=== PATIENT | male | born 1955 | race Two or more races ===

== ENCOUNTER 2018-09-25 03:37 | Inpatient (IN) | payer MEDICARE, MEDICAID ==
[~2018-09-25] VITALS: Ht 167.6 cm; Wt 83.1 kg
[2018-09-25] VITALS (7 sets, daily range): BP systolic 142–198; BP diastolic 60–85
[2018-09-25] MEDS ORDERED: Aspirin Baby 81mg ORAL ONE (03:45)
--- NOTE | 2018-09-25 03:45 | NUR ---
ED Nurse Note: Patient was BIBA from home due to respiratory disstress. Patient presented with SOB, BS 378, BP 249/89. Upon arrival patient had nonlabored bteathing, O2 Sat 98 % on 4L via NC. AAO x4, skin is dry, warm to touch. IV acces established, blood collected sent down.
--- NOTE | 2018-09-25 03:46 | Emergency Room Report ---
History of Present Illness General Chief Complaint: To Be Triaged Source: Patient Present Illness HPI This is a 63-year-old male with a history of insulin-dependent diabetes and hypertension. He also has a history of chronic lymphedema. He presents with chief complaint of shortness of breath. Onset yesterday but worse in the last 2 hours. Woke up in severe distress. Better sitting up. Call 911. Per EMS he was hypoxic at 90 to 91% on room air. He complained of chest tightness. Pain. No nausea no vomiting. Worse with exertion. Worse with lying flat. Allergies: Coded Allergies: No Known Allergies (Unverified , 09/25/18) Patient History Past Medical History: see triage record, old chart reviewed, DM, HTN Past Surgical History: other Pertinent Family History: none Social History: Denies: smoking Immunizations: other Reviewed Nursing Documentation: PMH: Agreed; PSxH: Agreed Nursing Documentation-PMH Hx Hypertension: Yes Hx Diabetes: Yes Review of Systems Eye: Denies: eye pain, blurred vision ENT: Denies: ear pain, nose congestion, throat swelling Respiratory: Reports: shortness of breath; Denies: cough Cardiovascular: Denies: chest pain, palpitations Gastrointestinal: Denies: abdominal pain, diarrhea, nausea, vomiting Musculoskeletal: Denies: back pain, joint pain Skin: Denies: rash Neurological: Denies: headache, numbness Endocrine: Denies: increased thirst, increased urine Hematologic/Lymphatic: Denies: easy bruising All Other Systems: negative except mentioned in HPI Physical Exam Vital Signs Date Time Temp Pulse Resp B/P (MAP) Pulse Ox O2 Delivery O2 Flow Rate FiO2 09/25/18 03:33 98.2 92 19 222/109 (146) 97 Nasal Cannula 4.0 Vitals with hypertension Sp02 EP Interpretation: reviewed, abnormal General Appearance: well appearing, alert, mild distress Head: normocephalic, atraumatic Eyes: bilateral eye PERRL, bilateral eye EOMI ENT: hearing grossly normal, normal pharynx Neck: full range of motion, supple, no meningismus Respiratory: chest non-tender, rales Cardiovascular #1: regular rate, rhythm, no murmur Gastrointestinal: normal bowel sounds, non tender, no mass, no organomegaly, no bruit, non-distended Musculoskeletal: back normal, normal range of motion, other - 3+ pitting edema Psychiatric: mood/affect normal Procedures Critical Care Time Critical Care Time Critical care is mandated in this patient who presented with acute respiratory distress secondary to CHF with hypoxia. Patient require my urgent intervention to attenuate the risks of metabolic collapse which may lead to cardiovascular collapse and . Critical care time is 35 minutes excluding any reportable procedure. Critical care time included evaluation, multiple reevaluation, looking at old charts, interpreting laboratory and diagnostic data, discussing case with patient and family and consultants, and charting. Medical Decision Making Diagnostic Impression: Primary Impression: CHF exacerbation Qualified Codes: I50.9 - Heart failure, unspecified Additional Impressions: Hypertensive emergency ARF (acute renal failure) Qualified Codes: N17.9 - Acute kidney failure, unspecified Hyperglycemia due to type 1 diabetes mellitus ER Course Patient presents with acute CHF with respiratory insufficiency. His BNP is very elevated. His was also very elevated. He is much more comfortable on oxygen. Blood pressure improved after Lasix, nitroglycerin and hydralazine. I discussed the case with Dr. Bautista at [facility]. In May 2017, creatinine is 1.6. He was admitted in May 2017 at [facility] for [facility]. He does not have results of blood work that admission. The IPA of his insurance will try to transfer him to either [facility] or [place]. If unable, he will be admitted here surface of Dr. Hernandez. Pt will be admitted here. I discussed case with Dr. Hernandez. Lab Results Impression Labs with elevated BNP EKG Diagnostic Results Rate: normal Rhythm: NSR ST Segments: no acute changes ASA given to the pt in ED: Yes Rhythm Strip Diag. Results EP Interpretation: yes Rate: 94 Rhythm: NSR, no PVC's, no ectopy Chest X-Ray Diagnostic Results Chest X-Ray Diagnostic Results : Chest X-Ray Ordered: Yes # of Views/Limited/Complete: 1 View Indication: Shortness of Breath EP Interpretation: Yes Interpretation: no consolidation, no effusion, other - Cardiomegaly with vascular congestion Impression: Other - chf Electronically Signed by: Geovanny Barahona MD Last Vital Signs Date Time Temp Pulse Resp B/P (MAP) Pulse Ox O2 Delivery O2 Flow Rate FiO2 09/25/18 03:33 98.2 92 19 222/109 (146) 97 Nasal Cannula 4.0 Status: improved Disposition: ADMITTED INPATIENT Condition: Serious Geovanny Barahona MD Sep 25, 2018 03:45
--- NOTE | 2018-09-25 03:50 | NUR ---
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
[2018-09-25] MEDS ORDERED: Nitroglycerin Subl 0.4mg tab SL ONE (04:00)
[2018-09-25] MEDS ORDERED: Nitroglycerin 2% oint pkt TOPIC ONE ×2 (04:00→05:07)
[2018-09-25 04:06] LABS: BASOPHILS % (AUTO) 1.4 % (0.0-2.0); EOSINOPHILS % (AUTO) 3.4 % (0.0-3.0); HEMATOCRIT 38.3 % (42.0-52.0); HEMOGLOBIN 12.4 G/DL (14.2-18.0); LYMPHOCYTES % (AUTO) 24.7 % (20.0-45.0); MEAN CORPUSCULAR VOLUME 88 FL (80-99); MONOCYTES % (AUTO) 5.1 % (1.0-10.0); NEUTROPHILS % (AUTO) 65.4 % (45.0-75.0); PLATELET COUNT 342 K/UL (150-450); RED BLOOD COUNT 4.35 M/UL (4.70-6.10); RED CELL DISTRIBUTION WIDTH 13.9 % (11.6-14.8); WHITE BLOOD COUNT 9.7 K/UL (4.8-10.8)
[2018-09-25 04:12] LABS: ANION GAP 12 mmol/L (5-15); BLOOD UREA NITROGEN 71 mg/dL (7-18); CALCIUM 8.9 MG/DL (8.5-10.1); CARBON DIOXIDE 21 MMOL/L (21-32); CHLORIDE 107 MMOL/L (98-107); CREATININE 5.6 MG/DL (0.55-1.30); SODIUM 140 MMOL/L (136-145)
[2018-09-25 04:25] LABS: ALANINE AMINOTRANSFERASE 25 U/L (12-78); ALBUMIN 2.3 G/DL (3.4-5.0); ALBUMIN/GLOBULIN RATIO 0.4 (1.0-2.7); ALKALINE PHOSPHATASE 267 U/L (46-116); ASPARTATE AMINO TRANSFERASE 20 U/L (15-37); BILIRUBIN,TOTAL 0.5 MG/DL (0.2-1.0); CKMB 4.8 NG/ML (0.0-3.6); CREATINE KINASE 231 U/L (26-308)
[2018-09-25] MEDS ORDERED: Insulin Human Regular 100units/ml 3ml IV ONE (04:30)
[2018-09-25 04:45] LABS: APPEARANCE,URINE CLEAR; BILIRUBIN, URINE NEGATIVE (NEGATIVE); COLOR,URINE PALE YELLOW; GLUCOSE, URINE (UA) 4+ (NEGATIVE); KETONES,URINE NEGATIVE (NEGATIVE); LEUKOCYTE ESTERASE ,URINE NEGATIVE (NEGATIVE); NITRITE,URINE NEGATIVE (NEGATIVE); PH,URINE 6 (4.5-8.0); PROTEIN,URINE 4+ (NEGATIVE); UROBILINOGEN,URINE NORMAL MG/DL (0.0-1.0)
--- NOTE | 2018-09-25 04:53 | NUR ---
ED Nurse Note: Per DR. Baraohna Hydralazine was administered 10 mg instead of 20. Patient's BP is 207/88.
--- NOTE | 2018-09-25 04:55 | NUR ---
ED Nurse Note: Per Dr. Barahona Nitro patch was removed. Pt's BP 102/75
--- NOTE | 2018-09-25 05:10 | NUR ---
ED Nurse Note: Per Brooklyn Harvey Nitro patch was replaced. Dose applicator was removed from the pyxes, no Nytro oitment was removed. Pt's BP 179/79.
--- NOTE | 2018-09-25 06:11 | NUR ---
ED Nurse Note: Patient is in the bed sleeping, VSS at this time, no acute disstress noticed.
[2018-09-25] MEDS ORDERED: UNOBMED (07:13)
[2018-09-25] MEDS ORDERED: ASPIRIN-LOW81 MG ORAL (07:31)
[2018-09-25] MEDS ORDERED: HUMALOG100 UNIT/3 SUBQ (07:31)
[2018-09-25] MEDS ORDERED: ATORVASTATIN CA40 MG ORAL (07:31)
[2018-09-25] MEDS ORDERED: AMLODIPINE-ATO1 EAC4 ORAL (07:31)
[2018-09-25] MEDS ORDERED: FLOMAX0.4 MG ORAL (07:31)
[2018-09-25] MEDS ORDERED: LANTUS SOL100 UNIT/1 SUBQ (07:31)
--- NOTE | 2018-09-25 07:49 | NUR ---
ED Nurse Note: Report was given to Cameron RN by Yulia CANSECO Patient transferred to 2E with all of his belongings in stable condition Endorsed all care to Cameron CANSECO
--- NOTE | 2018-09-25 08:01 | NUR ---
NURSE NOTES: received pt awake alert, ambulatory, called dr Hernandez received partial orders, for meds , per md he will come by to order meds
--- NOTE | 2018-09-25 08:01 | NUR ---
CASE MANAGEMENT: INITIAL REVIEW 63 YO M ETHAN FROM HOME CC: DYSPNEA PMHx: DM. HTN. SI:CHF EXACERBATION T 98.2 HR 92 RR 19 B/P 222/109 SATS 97% ON 4L/NC BUN 71 CR 5.6 GLU 412 ALP 267 CKMB 4.8 BNP 22061 IS: ASA PO X1 NITRO SL X1 HYDRALAZINE IV X1 LASIX IV X1 HUMAN REGULAR 10 UNIT IV X1 CLONIDINE PO X1 PATIENT ADMITTED TO TELE 09/25/2018 @ 0626 DCP: PATIENT TO BE DISCHARGED TO HOME ONCE MEDICALLY CLEARED. PLAN OF CARE: US RENAL 2D ECHO Addendum: 09/25/18 at 0809 by Eileen Victoria CM INTERQUAL MET
--- NOTE | 2018-09-25 08:03 | NUR ---
NURSE NOTES: no c/o pain. call light within reach. bed in lowest position, locked.
[2018-09-25] MEDS: Tamsulosin 0.4mg cap ORAL SCH (09:29)
[2018-09-25] MEDS: NovoLOG Insulin Flexpen SUBQ SCH ×3 (11:36→21:14)
--- NOTE | 2018-09-25 11:48 | Diagnostic Imaging Report ---
Indication:Elevated Bun and Creatinine. Technique: Grayscale and duplex Doppler imaging of the kidneys performed. Comparison: None Findings: The size, contour, and echogenicity of both kidneys are within normal limits. There is no hydronephrosis. The IVC and urinary bladder are unremarkable. Right kidney measures 12.4 cm. The left kidney measures 11.8 cm in length. IMPRESSION: Negative
--- NOTE | 2018-09-25 12:22 | Diagnostic Imaging Report ---
Indication: Dyspnea Comparison: None A single view chest radiograph was obtained. Findings: Pulmonary vascular congestion with prominent vascularity and interstitium and heart size are demonstrated. Bones are slightly osteopenic. IMPRESSION: CHF
--- NOTE | 2018-09-25 13:45 | NUR ---
NURSE NOTES: left msg for dr Mary barillas sbp 170, need prn sbp, awaiting response Addendum: 09/25/18 at 1347 by LIANG MCLAUGHLNI RN Received message from dr Mary barillas sbp, order to add vasotec 10 mg po bid, ordered
--- NOTE | 2018-09-25 14:20 | Cardiology Report ---
APPROVED REPORT EXAM: Two-dimensional and M-mode echocardiogram with Doppler and color Doppler. INDICATION SOB M-Mode DIMENSIONS IVSd1.4 (0.7-1.1cm)Left Atrium (MM)4.0 (1.6-4.0cm) LVDd3.8 (3.5-5.6cm)Aortic Root2.9 (2.0-3.7cm) PWd1.1 (0.7-1.1cm)Aortic Cusp Exc.1.9 (1.5-2.0cm) LVDs2.5 (2.5-4.0cm) PWs1.2 cm Technically difficult study due to pt's position. Normal left ventricular chamber size, systolic function and wall motion. Left ventricular ejection fraction estimated to be 60 %. Mild left ventricular hypertrophy. Trivial posterior pericardial effusion. All other cardiac chamber sizes are within normal limits. Focal aortic valve sclerosis with adequate cusp excursion. Thickened mitral valve leaflets with normal excursion. Mitral annulus and aortic root calcification. Pulmonic valve not well visualized. Normal tricuspid valve structure. IVC dilated at 2.4 cm with slight physiologic collapse suggestive of increased RA pressure. A color flow and spectral Doppler study was performed and revealed: Trace mitral regurgitation. Mitral diastolic velocities suggest reduced left ventricular relaxation c/w mild LV diastolic dysfunction (Grade I). Trace tricuspid regurgitation. Tricuspid systolic velocities suggests peak right ventricular systolic pressure of 28 mmHg.
--- NOTE | 2018-09-25 15:31 | Cardiology Report ---
APPROVED REPORT EKG Measurement Heart [id number] CA [id number] Sinus rhythm with premature atrial complexes Nonspecific ST and T wave abnormality Abnormal ECG
--- NOTE | 2018-09-25 15:46 | NUR ---
HAND-OFF: Report given to MONICA CANSECO.
--- NOTE | 2018-09-25 15:48 | NUR ---
NURSE NOTES: UA SAMPLE TAKEN TO LAB
--- NOTE | 2018-09-25 15:56 | NUR ---
NURSE NOTES: Received report from AJITH Barnes. The patient is sleeping on the bed without acute distress or shortness of breath. The patient's bed in the lowest position, call light in reach, and fall and aspiration precaution reinforced. Dr. Hernandez was notified regarding elevated blood pressure upto 170s systolic. Urine collection done by Cameron and was told that the sample went down to the lab. Will continue plan of care.
--- NOTE | 2018-09-25 16:06 | NUR ---
NURSE NOTES: Notified Dr. Hernandez regarding elevated glucose, BUN, Cr, CK-MB result. Also notified result of 2D echo and renal ultrasound. Will continue plan of care and will carry out the order as soon as receives it.
[2018-09-25 16:26] LABS: APPEARANCE,URINE CLEAR; BILIRUBIN, URINE NEGATIVE (NEGATIVE); COLOR,URINE PALE YELLOW; GLUCOSE, URINE (UA) 3+ (NEGATIVE); KETONES,URINE NEGATIVE (NEGATIVE); LEUKOCYTE ESTERASE ,URINE NEGATIVE (NEGATIVE); NITRITE,URINE NEGATIVE (NEGATIVE); PH,URINE 5 (4.5-8.0); PROTEIN,URINE 4+ (NEGATIVE); UROBILINOGEN,URINE NORMAL MG/DL (0.0-1.0)
--- NOTE | 2018-09-25 19:35 | NUR ---
HAND-OFF: Report given to AJITH Crowe. The patient is sleeping on the bed without acute distress or shortness of breath. The patient's bed in the lowest position, call light in reach, and fall and aspiration precaution reinforced. Endorsed plan of care.
--- NOTE | 2018-09-25 19:40 | NUR ---
NURSE NOTES: Received report from Adriel Luther RN. Patient in bed AAO X4 Nicaraguan speaking with some Macedonian noted. No complaints of acute pain or discomfort noted at this time. On 2L NC with no S/S of resp distress or SOB noted at this time. IV line intact and patent SL and placed on continuous cardiac monitoring per protocol. patient is on bedrest d/t Right foot amputation, offered urinal at bedside PRN. Safety precaution in place; siderails X3 up, call light within reach, bed in lowest position, brakes and alarm on at all times. Needs and wants anticipated and attended. Will continue plan of care and monitor for any changes noted.
[2018-09-25] MEDS: Atorvastatin 20mg tab ORAL SCH (21:12)
[2018-09-25] MEDS: Levemir Flexpen SUBQ SCH (21:15)
--- NOTE | 2018-09-25 21:30 | Consultation ---
DATE OF CONSULTATION: 09/25/2018 NEPHROLOGY CONSULTATION CONSULTING PHYSICIAN: Aaron Quiroga M.D. REFERRING PHYSICIAN: Gary Hernandez M.D. REASON FOR CONSULTATION: CHF, chronic kidney disease, and fluid overload. HISTORY OF PRESENT ILLNESS: The patient has a 25-year history of diabetes. He is currently insulin dependent. He also has hypertension, hyperlipidemia, peripheral vascular disease, and diabetic retinopathy, and neuropathy. He presents with increasing shortness of breath, called 911 and chest x-ray shows congestive heart failure. 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 According to the emergency room record, a phone call was made and on May 2017 his creatinine was 1.6. He was admitted in May 2017 at [facility]. ALLERGIES: None known. HOME MEDICATIONS: Include Lantus 25 units daily, sliding scale insulin, Lasix two pills twice a day, amlodipine, atorvastatin, and aspirin in uncertain doses. HABITS: He quit smoking about seven years ago, was a regular smoker prior to that. No alcohol or drugs. SOCIAL HISTORY: He is an immigrant from [place]. 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 FAMILY HISTORY: His mother had hypertension and father no significant illness. No history of diabetes in the family. SYSTEM REVIEW: HEAD, EYES, EARS, NOSE, AND THROAT: He has diabetic retinopathy and used to use regular injections in his eyes. Hearing is good. ENDOCRINE: Diabetes as above. No known thyroid disease. PULMONARY: No asthma, TB, or chronic cough. CARDIAC: No angina, MO or palpitations. History of hypertension. GASTROINTESTINAL: No GI bleeding, ulcer, nausea, or vomiting. GENITOURINARY: No dysuria, urinary hesitancy, or difficulty voiding. NEUROLOGIC: No CVA, syncope or seizures. PHYSICAL EXAMINATION: GENERAL: The patient is alert, well-developed man, in no acute distress. VITAL SIGNS: Temperature 98.2, pulse 59, respirations 18, and blood pressure 149/65. HEAD, EYES, EARS, NOSE AND THROAT: Sclerae are nonicteric. Ocular motions intact in all directions. Oral mucosa moist. NECK: No adenopathy or thyroid enlargement. LUNGS: Clear. HEART: Rhythm is regular. I hear no murmur. ABDOMEN: Soft without organomegaly or masses. EXTREMITIES: Show 2+ edema. There is a healed right Syme's amputation. NEUROLOGIC: He is alert and oriented. Cranial nerves are intact. PERTINENT LABORATORY DATA: Show sodium 140, potassium 5, chloride 107, CO2 21, BUN 71, and creatinine 5.6. Glucose 412. CPK 231. Troponin 0.008. BNP 11,770. Albumin is 2.3. Urinalysis shows 4+ protein, 4+ , 4+ glucose, 10 to 15 red cells per high-power field, 2 to 4 white cells per high-power field. IMPRESSION: 1. Chronic kidney disease, stage 5. Very likely due to diabetic nephropathy with nephrotic syndrome and peripheral edema. 2. Congestive heart failure, acute on chronic with diastolic dysfunction. 3. Uncontrolled diabetes. 4. Hypertensive heart disease. 5. Hyperlipidemia. PLAN: I discussed his condition in detail. I have recommended that he gets prepared for dialysis, but this time he is not willing to undergo dialysis. In the near future, as he hopes to travel to [place] and possibly [facility] where it would be difficult to be a dialysis patient, the risks of worsening azotemia, nausea, vomiting, and CHF were discussed with the patient and modalities of hemodialysis, peritoneal dialysis and the less possibility of transplant was discussed with the patient. At this time, we will treat his symptoms with increasing diuretics and try to maximize his cardiovascular status and monitor closely his renal failure. Diet advice is discussed in detail with the patient as well. Aaron Quiroga M.D. DR: ANTWON JOB#: [id number] CC:
[2018-09-26] VITALS: BP 149/59
--- NOTE | 2018-09-26 02:00 | Consultation ---
DATE OF CONSULTATION: 09/25/2018 CARDIOLOGY CONSULTATION CONSULTING PHYSICIAN: Jonatan Montelongo M.D. REQUESTING PHYSICIAN: Gary Hernandez M.D. REASON: Congestive heart failure in the setting of chronic kidney disease. HISTORY OF PRESENT ILLNESS: This is a 63-year-old male with a longstanding history of insulin-requiring diabetes mellitus and hypertension, who presented to the emergency room by 911 because of worsening shortness of breath. In the emergency room, he was noted to have clinical signs of congestive heart failure as well as renal failure. Hospitalization was initiated and I have been asked to assist with further cardiovascular care. The patient notes that he has a longstanding history of diabetes and worsening kidney function. His creatinine was 1.6 over a year ago and now it is over 5. He has been told by his primary care physician that he might require dialysis at some time. He has brittle diabetes with multiple complications. PAST MEDICAL HISTORY: Hypertension, insulin-requiring diabetes, chronic kidney disease, peripheral artery disease, right foot amputation, diabetic retinopathy, hyperlipidemia, and peripheral neuropathy. SOCIAL HISTORY: Former smoker. FAMILY HISTORY: Noncontributory. MEDICATIONS: Prior to admission reviewed and reconciled. ALLERGIES: None known. REVIEW OF SYSTEMS: No fevers. He has had laser treatment for his retinopathy. Hearing is good. No history of asthma. No history of abnormal blood clotting. No known history of thyroid disorder. No history of seizure or stroke. No change in bowel habits. No known history of prostate cancer. He denies any difficulty urinating. He is on anti-lipid therapy. PHYSICAL EXAMINATION: GENERAL: Awake, alert, in no acute distress, afebrile. VITLA SIGNS: Blood pressure 149/65, pulse 59, respirations 18. HEENT: Conjunctiva pink. Sclerae are anicteric. Oropharynx clear. Mucous membranes moist. NECK: Supple. Jugular venous pressure is slightly elevated. LUNGS: No wheezing or rales. CARDIAC: Regular rhythm and rate. Normal S1, S2 with a fourth heart sound. Point of maximum impulse is sustained. ABDOMEN: Soft, nontender. There is no CVA tenderness. No bruits. EXTREMITIES: With 2+ dependent edema. There is a healed right foot amputation. NEUROLOGIC: Nonfocal. LABORATORY AND DIAGNOSTIC DATA: Potassium 5, bicarb 21, BUN 71, creatinine 5.6, and glucose 412. Troponin 0.008. Albumin 2.3. White count 9.7, hemoglobin 12.4. Renal ultrasound reveals medical disease. Echocardiogram revealed diastolic dysfunction with no significant valve disorder and normal ejection fraction. EKG with sinus rhythm, premature atrial contractions, and nonspecific ST-T wave changes. Chest x-ray reveals pulmonary venous congestion and mild cardiomegaly. IMPRESSION: 1. Acute on chronic diastolic congestive heart failure. 2. Chronic kidney disease stage 5 likely due to nephropathy. 3. Diabetes mellitus insulin requiring now and poorly controlled. 4. Hypertensive heart disease with slight blood pressure elevation. 5. Hyperlipidemia, on statin therapy. 6. Protein-calorie malnutrition, likely due to nephrotic syndrome. 7. Peripheral artery disease with prior right foot amputation. PLAN: 1. Diuresis efforts with IV diuretic therapy. 2. Titration of anti-failure regimen. 3. Dietary restrictions. 4. Dialysis recommendations per bottle capping machine operator. Jonatan Montelongo M.D. DR: RICARDO JOB#: [id number] CC:
--- NOTE | 2018-09-26 02:17 | NUR ---
NURSE NOTES: Patient in bed asleep with no complaint of distress or discomfort at this time. Will continue to monitor.
[2018-09-26 04:00] VITALS: BP 140/61
[2018-09-26] MEDS: NovoLOG Insulin Flexpen SUBQ SCH ×5 (05:31→21:21)
[2018-09-26 07:05] LABS: ANION GAP 12 mmol/L (5-15); BLOOD UREA NITROGEN 73 mg/dL (7-18); CALCIUM 8.2 MG/DL (8.5-10.1); CARBON DIOXIDE 20 MMOL/L (21-32); CHLORIDE 109 MMOL/L (98-107); CREATININE 5.8 MG/DL (0.55-1.30); POTASSIUM 4.4 MMOL/L (3.5-5.1); SODIUM 141 MMOL/L (136-145)
--- NOTE | 2018-09-26 07:10 | NUR ---
HAND-OFF: Report given to Vanita Roque RN. Patient in bed in stable condition. Endorsed plan of care.
--- NOTE | 2018-09-26 07:12 | NUR ---
NURSE NOTES: Received report from AJITH Crowe. Patient is resting in bed, in stable condition. Alert and orientedX4. Breathing unlabored with 2 liter Nasal Cannula. Bed in lowest position with two side rails up, brakes on, call light and bed side table within reach. Will continue plan of care.
[2018-09-26 08:00] VITALS: BP 174/74
[2018-09-26] MEDS: Tamsulosin 0.4mg cap ORAL SCH (09:03)
--- NOTE | 2018-09-26 09:16 | Nephrology Progress Note ---
Assessment/Plan Problem List: (1) Nephropathy due to secondary diabetes (2) Nephrotic syndrome (3) CKD (chronic kidney disease) stage 5, GFR less than 15 ml/min (4) Hyperglycemia due to type 1 diabetes mellitus (5) CHF exacerbation Plan declines dialysis, avoid acei or arb as likely to get hyperkalemic, add doxazocin, change lasix to 160 mg po bid Subjective Constitutional: Reports: weakness HEENT: Reports: no symptoms Genitourinary: Reports: no symptoms Neurologic/Psychiatric: Reports: no symptoms Subjective sys sob improved, no angina Objective Objective Last 24 Hour Vital Signs Date Time Temp Pulse Resp B/P (MAP) Pulse Ox O2 Delivery O2 Flow Rate FiO2 09/26/18 09:04 174/74 09/26/18 09:04 70 174/74 09/26/18 08:00 98.6 70 20 174/74 (107) 96 09/26/18 04:00 97.9 67 20 140/61 (87) 98 09/26/18 04:00 64 09/26/18 00:00 70 09/26/18 00:00 98.0 66 20 149/59 (89) 95 09/25/18 21:00 Nasal Cannula 2.0 09/25/18 20:00 98.0 56 18 142/60 (87) 99 09/25/18 20:00 61 09/25/18 17:16 149/65 09/25/18 16:00 98.2 59 18 149/65 (93) 99 09/25/18 16:00 55 09/25/18 12:00 98.6 64 20 171/74 (106) 98 09/25/18 11:24 63 09/25/18 09:29 75 158/80 Intake and Output 09/25/18 09/26/18 18:59 06:59 Intake Total 1700 ml Output Total 700 ml Balance 1000 ml Intake Oral 1700 ml Output Urine Total 700 ml # Voids 1 Laboratory Tests 09/25/18 13:13: Urine Color Pale yellow, Urine Appearance Clear, Urine pH 5, Urine Specific [place] 1.010, Urine Protein 4+H, Urine Glucose (UA) 3+H, Urine Ketones Negative , Urine Blood 2+H, Urine Nitrite Negative, Urine Bilirubin Negative, Urine Urobilinogen Normal, Urine Leukocyte Esterase Negative, Urine RBC 2-4H, Urine WBC 0-2, Urine Squamous Epithelial Cells None, Urine Bacteria Occasional, Urine Random Total Protein 406H, Urine Random Sodium 71, Urine Creatinine 38.7 09/26/18 05:50: Sodium Level 141, Potassium Level 4.4, Chloride Level 109H, Carbon Dioxide Level 20L, Anion Gap 12, Blood Urea Nitrogen 73H, Creatinine 5.8H, Estimat Glomerular Filtration Rate 9.9, Glucose Level 106#, Calcium Level 8.2L Height (Feet): 5 Height (Inches): 6.00 Weight (Pounds): 170 General Appearance: no apparent distress, alert EENT: normal ENT inspection Neck: normal alignment, supple Cardiovascular: regular rhythm Respiratory/Chest: lungs clear Abdomen: non tender, soft, no organomegaly Extremities: moderate edema Neurologic: classification inspector II-XII grossly normal Aaron Quiroga MD Sep 26, 2018 09:16
[2018-09-26] MEDS ORDERED: Doxazosin 4mg tab ORAL SCH (09:30)
--- NOTE | 2018-09-26 10:52 | NUR ---
CASE MANAGEMENT: REVIEW 09/26/2018 SI:CHF EXACERBATION T 98.6 HR 70 RR 20 B/P 174/74 SATS 96% ON 2L/NC CL 109 CO2 20 BUN 73 CR 5.8 CA 8.2 IS: LASIX PO Q12H LIPITOR PO QHS CARDURA PO BID NORVASC PO QD INSULIN ASPART SUBQ AC/HS LEVEMIR SUBQ QHS TELE STATUS DCP: PATIENT TO BE DISCHARGED TO HOME ONCE MEDICALLY CLEARED. PLAN OF CARE: US RENAL (-) 2D ECHO (EF 60%)
--- NOTE | 2018-09-26 10:55 | NUR ---
INSURANCE NO B/AR INDICATION WHERE TO FAX CLINICAL/REVIEWS
[2018-09-26 12:00] VITALS: BP 149/66
[2018-09-26 16:00] VITALS: BP 152/61
[2018-09-26] MEDS: Doxazosin 4mg tab ORAL SCH (17:17)
--- NOTE | 2018-09-26 19:30 | NUR ---
HAND-OFF: Report given to AJITH Mckeon.
--- NOTE | 2018-09-26 19:30 | NUR ---
NURSE NOTES: Received patient from Courtney CANSECO. Patient awake in bed, alert and oriented x4. Bed in low position, locked, call light within reach. Refused bilateral SCDs, patient is ambulatory. PIV on RAC #20 intact, no signs of infection or infiltration. Patient c/o 4 episodes of diarrhea today and requested medication. Notified Dr. Hernandez, received orders for c-diff and vancomycin 250mg po qid. Instructed patient to notified staff the next time he has diarrhea so staff can collect stool specimen.
[2018-09-26 20:00] VITALS: BP 159/68
[2018-09-26] MEDS: Atorvastatin 20mg tab ORAL SCH (20:44)
[2018-09-26] MEDS: Furosemide 80mg tab ORAL SCH (20:44)
[2018-09-26] MEDS: Levemir Flexpen SUBQ SCH (20:48)
[2018-09-26] MEDS: Vancomycin oral 125mg/2.5ml ORAL SCH (22:00)
--- NOTE | 2018-09-26 22:30 | Progress Note ---
DATE: 09/26/2018 CARDIOLOGY PROGRESS NOTE SUBJECTIVE: The patient is slightly less short of breath today. He has been on diuretics and does not want to consider dialysis presently, but understands that he may have to in the future. He has travel plans at this time. OBJECTIVE: VITAL SIGNS: Blood pressure 140/61 to 174/74, heart rate 67 to 70, respiratory rate 20, and afebrile. LUNGS: With few rales. CARDIAC: Regular rhythm and rate. Normal S1 and S2 with a fourth heart sound. ABDOMEN: Soft. No edema. LABORATORY DATA: Reviewed. BUN 73, creatinine 5.8, potassium 4.4, and bicarbonate 20. Echocardiogram revealed normal ejection fraction. IMPRESSION: 1. Volume overload due to progressive renal failure. 2. Acute on chronic diastolic congestive heart failure. 3. Hypertensive heart disease with labile blood pressure and malignant range blood pressure at times. 4. Insulin-requiring diabetes with complications. 5. Metabolic acidosis. PLAN: 1. Continue diuresis. 2. Avoiding all medications that can increase potassium level such as BRENT inhibitors. 3. We will advance antihypertensive regimen with at this time. 4. No immediate plans for dialysis. Jonatan Montelongo M.D. DR: DAGOBERTO JOB#: [id number] CC:
[2018-09-27] VITALS: BP 167/67
--- NOTE | 2018-09-27 | NUR ---
NURSE NOTES: No episodes of diarrhea. Notified Dr. Hernandez of BP 167/67. Dr. Hernandez replied "call me when it's over 200." No other orders. Will continue to monitor.
[2018-09-27 04:00] VITALS: BP 161/71
[2018-09-27] MEDS: NovoLOG Insulin Flexpen SUBQ SCH ×2 (06:08→11:37)
[2018-09-27 06:27] LABS: BASOPHILS % (AUTO) 1.9 % (0.0-2.0); EOSINOPHILS % (AUTO) 4.4 % (0.0-3.0); HEMATOCRIT 27.7 % (42.0-52.0); LYMPHOCYTES % (AUTO) 33.8 % (20.0-45.0); MEAN CORPUSCULAR VOLUME 87 FL (80-99); MONOCYTES % (AUTO) 10.9 % (1.0-10.0); NEUTROPHILS % (AUTO) 49.1 % (45.0-75.0); PLATELET COUNT 235 K/UL (150-450); RED BLOOD COUNT 3.16 M/UL (4.70-6.10); RED CELL DISTRIBUTION WIDTH 14.1 % (11.6-14.8); WHITE BLOOD COUNT 6.9 K/UL (4.8-10.8)
--- NOTE | 2018-09-27 07:08 | Nephrology Progress Note ---
Assessment/Plan Problem List: (1) Nephropathy due to secondary diabetes (2) Nephrotic syndrome (3) CKD (chronic kidney disease) stage 5, GFR less than 15 ml/min (4) Hyperglycemia due to type 1 diabetes mellitus (5) CHF exacerbation (6) Hypertensive nephrosclerosis Plan declines dialysis, avoid acei or arb as likely to get hyperkalemic, add doxazocin, change lasix to 160 mg po bid, will need close f/u post discharge, color checker roving or yarn to see Subjective Constitutional: Reports: no symptoms HEENT: Reports: no symptoms Neurologic/Psychiatric: Reports: no symptoms Subjective sob improved, no angina Objective Objective Last 24 Hour Vital Signs Date Time Temp Pulse Resp B/P (MAP) Pulse Ox O2 Delivery O2 Flow Rate FiO2 09/27/18 04:00 97.9 74 20 161/71 (101) 95 09/27/18 04:00 66 09/27/18 00:00 71 09/27/18 00:00 98.3 75 20 167/67 (100) 94 09/26/18 21:00 Room Air 09/26/18 20:00 64 09/26/18 20:00 98.0 65 20 159/68 (98) 93 09/26/18 16:00 97.7 65 20 152/61 (91) 92 09/26/18 16:00 64 09/26/18 12:00 64 09/26/18 12:00 97.7 66 20 149/66 (93) 96 09/26/18 09:04 174/74 09/26/18 09:04 70 174/74 09/26/18 09:00 Nasal Cannula 2.0 09/26/18 08:00 98.6 70 20 174/74 (107) 96 09/26/18 08:00 71 Intake and Output 09/26/18 09/27/18 19:00 07:00 Output Total 600 ml Balance -600 ml Output Urine Total 600 ml # Bowel Movements 1 Laboratory Tests 09/27/18 05:10: White Blood Count [Pending], Red Blood Count [Pending], Hemoglobin [Pending], Hematocrit [Pending], Mean Corpuscular Volume [Pending], Mean Corpuscular Hemoglobin [Pending], Mean Corpuscular Hemoglobin Concent [Pending], Red Cell Distribution Width [Pending], Platelet Count [Pending], Mean Platelet Volume [ Pending], Neutrophils (%) (Auto) [Pending], Lymphocytes (%) (Auto) [Pending], Monocytes (%) (Auto) [Pending], Eosinophils (%) (Auto) [Pending], Basophils (%) (Auto) [Pending], Sodium Level [Pending], Potassium Level [Pending], Chloride Level [Pending], Carbon Dioxide Level [Pending], Blood Urea Nitrogen [Pending], Creatinine [Pending], Estimat Glomerular Filtration Rate [Pending], Glucose Level [Pending], Calcium Level [Pending], Total Bilirubin [Pending], Aspartate Amino Transf (AST/SGOT) [Pending], Alanine Aminotransferase (ALT/SGPT) [Pending] , Alkaline Phosphatase [Pending], Total Protein [Pending], Albumin [Pending], Globulin [Pending] Height (Feet): 5 Height (Inches): 6.00 Weight (Pounds): 183 General Appearance: no apparent distress, alert EENT: normal ENT inspection Neck: normal alignment Cardiovascular: normal rate, regular rhythm Respiratory/Chest: lungs clear Extremities: trace edema Neurologic: handbag stitcher II-XII grossly normal Aaron Quiroga MD Sep 27, 2018 07:08
[2018-09-27 07:10] LABS: ALANINE AMINOTRANSFERASE 13 U/L (12-78); ALBUMIN 1.8 G/DL (3.4-5.0); ALBUMIN/GLOBULIN RATIO 0.5 (1.0-2.7); ALKALINE PHOSPHATASE 186 U/L (46-116); ANION GAP 11 mmol/L (5-15); ASPARTATE AMINO TRANSFERASE 20 U/L (15-37); BILIRUBIN,TOTAL 0.3 MG/DL (0.2-1.0); BLOOD UREA NITROGEN 77 mg/dL (7-18); CALCIUM 7.9 MG/DL (8.5-10.1); CARBON DIOXIDE 20 MMOL/L (21-32); CHLORIDE 105 MMOL/L (98-107); CREATININE 5.9 MG/DL (0.55-1.30); POTASSIUM 4.1 MMOL/L (3.5-5.1); SODIUM 136 MMOL/L (136-145)
--- NOTE | 2018-09-27 07:20 | NUR ---
NURSE NOTES: Report received from AJITH Barnes. Pt in bed, awake and talkative, eating breakfast, no complaints of pain, no apparent distress noted, Maya RESENDEZ obtaining vitals, report by AJITH Barnes. pt has had HTN, SBP 160's/ 170's, Dr. Hernandez notified and asked to be called when SBP is in 200's, no current PRN for HTN ordered, Bed in lowest position, call [facility] within reach.
--- NOTE | 2018-09-27 07:20 | NUR ---
HAND-OFF: Report given to Desi CANSECO. Plan of care endorsed.
[2018-09-27 08:00] VITALS: BP 170/66
[2018-09-27] MEDS: Furosemide 80mg tab ORAL SCH (08:54)
[2018-09-27] MEDS: Doxazosin 4mg tab ORAL SCH (08:55)
[2018-09-27] MEDS: Vancomycin oral 125mg/2.5ml ORAL SCH ×2 (08:55→13:43)
[2018-09-27] MEDS ORDERED: HydrALAZINE 25mg tab ORAL SCH (09:00)
--- NOTE | 2018-09-27 10:02 | NUR ---
RADIOLOGY DEPT., CHEST X-RAY DONE.-P.DYE
[2018-09-27 11:58] VITALS: BP 164/76
--- NOTE | 2018-09-27 12:01 | NUR ---
CASE MANAGEMENT:REVIEW 09/27/18 SI: AC/CHR CHF. RENAL FAILURE 97.9 69 18 170/66 94% ON RA H/H-9.0/27.7 BUN+77 CR+5.9 GLUCOSE+69 IS: HYDRALAZINE PO BID LASIX PO Q12 VANCOMYCIN PO QID CARDURA PO BID NORVASC PO QD SS INSULIN AC+HS LEVEMIR SQ QHS : TELEMETRY STATUS DCP: FROM HOME PLAN: NOT INTERESTED IN DIALYSIS AT THIS TIME YOSHI BUTLER
--- NOTE | 2018-09-27 13:29 | NUR ---
INSURANCE NO INSURANCE INFORMATION IN BAR UNABLE TO SEND CLINICALS OR REVIEWS
[2018-09-27] MEDS ORDERED: FUROSEMIDE80 M1 ORAL (13:30)
[2018-09-27] MEDS ORDERED: HYDRALAZINE HCL25 M1 ORAL (13:31)
[2018-09-27] MEDS ORDERED: DOXAZOSIN MESYLA4 MG ORAL (13:31)
[2018-09-27] MEDS ORDERED: AMLODIPINE BESY10 MG ORAL (13:32)
--- NOTE | 2018-09-27 13:38 | NUR ---
NURSE NOTES: Report to Dr. Hernandez regarding stool culture result negative for C.Diff and PT eval that pt is at baseline, safe for DC home. Dr. Hernandez ordered DC and reviewed all DC medications. Stated to call his nurse and get the office fax to have home medications called into pt's pharmacy Left message for Dr. Hernandez's nurse, Bety and left message on office phone to call [facility] with fax number.
--- NOTE | 2018-09-27 14:07 | Diagnostic Imaging Report ---
Indication: Dyspnea Comparison: None A single view chest radiograph was obtained. Findings: Infiltrate suspected at the lung bases. Heart is mildly enlarged. Superimposed mild pulmonary vascular congestion also suspected. IMPRESSION: Basilar pneumonia suspected. Correlate clinically Suspected mild CHF
--- NOTE | 2018-09-27 14:55 | NUR ---
P.T NOTE: P.T EVALUATION COMPLETED. PATIENT IS INDEPENDENT WITH ADL/FUNCTIONAL MOBILITIES AND GAIT/AMBULATION USING THE FWW. PATIENT'S CURRENT FUNCTIONAL STATUS DOES NOT WARRANT SKILLED P.T SERVICES PATIENT IS BASELINE INDEPENDENT. NO FURTHER SKILLED P.T FOLLOW UP NEEDED. THANK YOU FOR THIS REFERRAL. Addendum: 09/27/18 at 1456 by NITISH MARTÍNEZ PT Amended: Links added.
--- NOTE | 2018-09-27 15:48 | NUR ---
NURSE NOTES: Pt discharge home with all belongings and DC paperwork. DC Medication called into pt's pharmacy by Leticia at Dr. Hernandez's office. IV removed intact, ID band removed, pt at baseline for physical function. Accompanied by , pt stable for discharge.
--- NOTE | 2018-09-27 19:15 | Progress Note ---
DATE: 09/27/2018 CARDIOLOGY PROGRESS NOTE SUBJECTIVE: The patient feels better. Less short of breath. Urine output is responding to diuretics; however, his renal function remains very poor. The patient is not ready to pursue dialysis at this time. OBJECTIVE: VITAL SIGNS: Blood pressure 161/71, pulse 74, respirations 20. LUNGS: Clear. CARDIAC: Regular. Normal S1, S2 with a fourth heart sound. ABDOMEN: Soft. EXTREMITIES: No edema. LABORATORY DATA: White count 6.9, hemoglobin 9. Potassium 4.1, bicarbonate 20, sodium 136, BUN 77, creatinine 5.9, albumin 1.8. IMPRESSION: 1. Chronic kidney disease, stage 5. 2. Metabolic acidosis. 3. Severe protein-calorie malnutrition. 4. Acute on chronic diastolic congestive heart failure. 5. Insulin-requiring diabetes mellitus. 6. Hypertensive heart disease with malignant range blood pressure. PLAN: 1. Advance doxazosin to optimize blood pressure control. 2. Maintenance dose diuretic initiated and will need to be titrated as an outpatient based on clinical parameters. Remainder of cardiovascular regimen to continue without change. 3. Low-potassium diet and avoiding BRENT inhibitors and ARB drugs to avoid risk of hyperkalemia until dialysis is considered. Jonatan Montelongo M.D. DR: LARON JOB#: [id number] CC:
--- NOTE | 2018-09-27 22:15 | History and Physical Report ---
DATE OF ADMISSION: 09/25/2018 CHIEF COMPLAINT: Short of breath. HISTORY OF PRESENT ILLNESS: The patient is a pleasant 63-year-old man, who comes to the hospital through the emergency department because of shortness of breath. He was evaluated and found to have pulmonary edema due to acute on chronic renal failure. He is aware that he has some kidney problems that he has been monitoring. He saw his primary physician about a month earlier. He has no chest pain, but does have some ankle edema. He was treated with diuretics and Nephrology was consulted. PAST MEDICAL HISTORY: Hypertension, type 1 diabetes, on chronic insulin, chronic kidney disease, peripheral artery disease, right partial foot amputation, diabetic retinopathy, hyperlipidemia, and peripheral neuropathy. MEDICATIONS: Reviewed and reconciled. ALLERGIES: None. SOCIAL HISTORY: He is a former smoker. He does not smoke any longer. He does not drink excessively. REVIEW OF SYSTEMS: Otherwise unremarkable. PHYSICAL EXAMINATION: GENERAL: The patient is alert and responds appropriately. VITAL SIGNS: Stable. He is not in respiratory distress. HEENT: The head is normocephalic. NECK: No jugular venous distention. CHEST: Decreased breath sounds bases. CARDIAC: Rhythm is regular. No murmur or gallop. ABDOMEN: Soft and nontender. EXTREMITIES: Have 2+ edema. There is a partial amputation of the right foot. LABORATORY STUDIES: Notable for creatinine 5.6. Blood sugar 412. Albumin was 2.3. IMPRESSION: 1. Chronic kidney disease with pulmonary edema. 2. Acute on chronic diastolic heart failure. 3. Diabetes, insulin dependent. 4. Hypertensive heart disease. 5. Hyperlipidemia. 6. Hypoalbuminemia, probably due to nephrotic syndrome. 7. Peripheral artery disease with prior right partial foot amputation. PLAN: Nephrology will see the patient and recommend starting him on dialysis. The patient will be evaluated by the dietitian and he will be instructed on recommendations for proper diet for his diabetes and renal failure. Gary Hernandez M.D. DR: PAT JOB#: [id number] CC:
--- NOTE | 2018-09-27 23:30 | Progress Note ---
DATE: 09/27/2018 This report is for 09/26/2018. This report is dictated on 09/27/[address] Walker discussed. This is late entry in system. SUBJECTIVE: The patient has refused dialysis. Dr. Quiroga has started him on high-dose Lasix to control his fluid overload state. He has been seen by Cardiology. He has no chest pain. An echocardiogram shows evidence of diastolic heart failure. PHYSICAL EXAMINATION: GENERAL: On exam, he is not short of breath. VITAL SIGNS: Stable. His room air saturation is satisfactory. CHEST: Clear. CARDIAC: Rhythm is regular. EXTREMITIES: There is 2+ edema. PLAN: The patient will be changed to oral diuretics with plans to discharge home on 09/27/2018 if he is stable. He was advised again that he has to require dialysis in the near future after discharge. He expressed an understanding of the conversation. Gary Hernandez M.D. DR: PAT JOB#: [id number] CC:
--- NOTE | 2018-09-28 21:31 | Discharge Summary ---
Discharge Summary Discharge Summary _ DATE OF ADMISSION: 09/25/2018 DATE OF DISCHARGE: 09/27/2018 DISCHARGED BY: Dr. Hernandez REASON FOR ADMISSION: 63 years old male with past medical history of hypertension, diabetes mellitus type 1, chronic kidney disease, peripheral artery disease, right partial foot amputation, diabetic retinopathy, hyperlipidemia, peripheral neuropathy, presented to emergency department for shortness of breath. Per paramedics, patient was hypoxic and required supplemental oxygen via nasal cannula. Upon presentation patient complained of shortness of breath worse with exertion and lying flat. Patient also reported ankle edema. No nausea, no vomiting. No fevers no chills. Upon evaluation blood pressure was significantly elevated 222/109. Pulse oximetry on 4 L of oxygen was 97%. Laboratory work-up revealed no leukocytosis, hemoglobin 12.4, hematocrit 38.3. BUN 71, creatinine 5.6. Glucose 412. Troponin 0.008. Pro BNP 80472. EKG revealed sinus rhythm, no acute ischemic changes. Albumin 2.3. Urinalysis revealed +4 protein, +4 glucose, +3 blood. Chest x-ray demonstrated congestive heart failure. Patient admitted due to CHF exacerbation, acute renal failure, hypertensive emergency and hyperglycemia due to type 1 diabetes mellitus. CONSULTANTS: appraisal analyst special education superintendent Dr. Quiroga HOSPITAL COURSE: Patient admitted to monitored floor. Echocardiogram revealed preserved ejection fraction of 60% with no evidence of wall motion abnormality. Mild left ventricular hypertrophy. Right ventricular systolic pressure of 28. Renal ultrasound demonstrated no evidence of hydronephrosis. Bilateral kidney echogenicity within normal limits. Fig Bar Machine Operator and appraisal analyst followed. Fig Bar Machine Operator recommended start patient on dialysis. Patient started on diuresis with close monitoring of volumes and cardiorenal parameters. Anti-failure regimen was titrated. All medications that increase potassium level such as BRENT inhibitor or ARB were avoided. Antihypertensive regimen was further advanced to keep blood pressure under control. Dietary restriction implemented. Fig Bar Machine Operator recommended to start hemodialysis. However, patient was unwilling to undergo dialysis. Patient planned in near future to travel to [place] and possibly [facility], and that would make it difficult for him to be a dialysis patient. The risk of worsening acidemia, nausea, vomiting,, congestive heart failure, were discussed with patient. Patient was treated symptomatically with increased diuretic while trying to optimize his cardiovascular status. Urine random total protein 416. Patient will need maintenance dose of diuretic and further titration on outpatient basis, based on clinical parameters. Patient was counseled on low potassium cardiac diabetic diet. Pl Sql Developer seen the patient and discussed proper diet Blood sugar was managed with long-acting Levemir and sliding scale of short acting insulin. Blood glucose stabilized. Statin was continued. Prior to discharge patient was changed to oral diuretic. He was advised that he will likely require dialysis in the near future. Patient expressed understanding of the conversation. FINAL DIAGNOSES: Acute on chronic diastolic congestive heart failure Volume overload due to progressive renal failure Chronic kidney disease stage V, likely due to diabetic nephropathy Nephrotic syndrome Hyperglycemia due to diabetes mellitus type 1 Hypertensive heart disease with hypertensive emergency Hypertensive nephrosclerosis Hyperlipidemia Severe protein calorie malnutrition, likely due to nephrotic syndrome Peripheral vascular disease with partial right foot amputation Metabolic acidosis DISCHARGE MEDICATIONS: See Medication Reconciliation list. DISCHARGE INSTRUCTIONS: Patient was discharged home. Outpatient follow-up with her primary care provider in 1 week I have been assigned to dictate discharge summary for this account. I was not involved in the patient's management. Maria Esther Butcher NP Sep 28, 2018 21:31
--- NOTE | 2018-09-29 11:37 | NUR ---
CASE MANAGEMENT: CM review and clinical information (face sheet/ ER MD notes/ H&P) faxed to [facility] @ [phone]
--- NOTE | 2018-09-30 13:55 | NUR ---
INSURANCE UPDATED CLINICALS and REVIEW HAVE BEEN FAXED TO: SAVANNA ENGLE/RENÉ PLEASE FAX THE REVIEW AND CLINICAL TO [facility]: [phone] PH: [phone]
== END 2018-09-27 15:50 | disposition home or self-care (01) | DRG 291 ==
LOC: EDBD 03:37 → EMR 03:47 → 2E 06:26 → EDBEDREQ 06:34
DX: I13.2 Hypertensive heart and chronic kidney disease with heart failure and with stage 5 chronic kidney disease, or end stage renal disease (principal); I50.33 Acute on chronic diastolic (congestive) heart failure; E43 Unspecified severe protein-calorie malnutrition; N18.5 Chronic kidney disease, stage 5; I16.1 Hypertensive emergency; N17.9 Acute kidney failure, unspecified; E87.2 Acidosis; I50.9 Heart failure, unspecified; E10.65 Type 1 diabetes mellitus with hyperglycemia; Z87.891 Personal history of nicotine dependence; E10.22 Type 1 diabetes mellitus with diabetic chronic kidney disease; E10.319 Type 1 diabetes mellitus with unspecified diabetic retinopathy without macular edema; Z79.4 Long term (current) use of insulin; E78.5 Hyperlipidemia, unspecified; Z89.431 Acquired absence of right foot; G62.9 Polyneuropathy, unspecified; E87.79 Other fluid overload
CPT/HCPCS: 36415; 71045; 76770; 80048; 80053; 81001; 81003; 82044; 82550; 82553; 82570; 82962; 83880; 84300; 84484; 85025; 85610; 85730; 87324; 93005; 93306; 96374; 96375; 96376; 99285; J1815; S5561